=== PATIENT | male | born 1955 | race Two or more races ===

== ENCOUNTER 2019-04-08 12:20 | Outpatient (CLI) | payer OTHER | END 2019-04-08 12:32 | disposition home or self-care (01) | LOC: TOM 12:20 | DX: E13.69 Other specified diabetes mellitus with other specified complication (principal); I10 Essential (primary) hypertension ==

== ENCOUNTER 2019-06-19 11:18 | Inpatient (IN) | payer OTHER ==
[~2019-06-19] VITALS: Ht 193 cm; Wt 90.7 kg
[2019-06-19] MEDS ORDERED: GLIPIZIDE ER10 MG PO (12:27)
[2019-06-19] MEDS ORDERED: GLUMETZA1000 MG PO (12:27)
[2019-06-19] MEDS ORDERED: LOSARTAN POTAS100 MG PO (12:28)
[2019-06-19] MEDS ORDERED: GRALISE600 MG PO (12:29)
[2019-06-19] MEDS ORDERED: ELIQUIS2.5 MG PO (12:30)
[2019-06-19] MEDS ORDERED: ATORVASTATIN CA40 MG PO (12:30)
[2019-06-19] MEDS ORDERED: ATIVAN1 M1 PO (12:31)
--- NOTE | 2019-06-19 12:32 | NUR ---
PACIENTE ALERTA Y ORIENTADO CON [facility] EN PIE LT STEPHENS QUE TRATA LA ULCERA DR. CAMPOS Y DOCTOR INTERNISTA DR. CALIX. ES UN REFERIDO MEDICO DR. CAMPOS.
--- NOTE | 2019-06-19 12:52 | NUR ---
SE EDUCA A PTE SOBRE TX MEDICO MARKELL REFIERE ENTENDER. SE PITO MUESTRAS DE LAB UTILIZANDO MEDIDAS ASEPTICAS. SE COLOCA H/L A PTE EL CUAL SE ENCUENTRA PATENTE CRYSTAL DE EDEMA Y ENROJECIMIENTO. PTE SE CONTINUA MONITORIANDO POR CAMBIOS.
== END 2019-06-27 13:25 | disposition home or self-care (01) | DRG 256 ==
LOC: ER 11:18 → SURH 15:35
PROVIDERS: Specialist; ADMIT Internal Medicine Cardiovascular Disease
PROC: 0Y6Y0Z0 Detachment at Left 5th Toe, Complete, Open Approach (ICD-10-PCS; principal; 2019-06-22 14:00)
DX: E11.52 Type 2 diabetes mellitus with diabetic peripheral angiopathy with gangrene (principal); I96 Gangrene, not elsewhere classified; M86.172 Other acute osteomyelitis, left ankle and foot; L97.528 Non-pressure chronic ulcer of other part of left foot with other specified severity; E11.69 Type 2 diabetes mellitus with other specified complication; E11.42 Type 2 diabetes mellitus with diabetic polyneuropathy; E11.621 Type 2 diabetes mellitus with foot ulcer; Z95.0 Presence of cardiac pacemaker

== ENCOUNTER → 2022-10-23 08:41 | Outpatient (CLI) | payer OTHER ==
[~2022-10-23 08:41] MED LIST: ATIVAN1 M1 PO; ATORVASTATIN CA40 MG PO; ELIQUIS2.5 MG PO; GLIPIZIDE ER10 MG PO; GLUMETZA1000 MG PO; GRALISE600 MG PO; LOSARTAN POTAS100 MG PO
== END | disposition home or self-care (01) ==
LOC: LAB 08:41
DX: E11.22 Type 2 diabetes mellitus with diabetic chronic kidney disease (principal); R80.0 Isolated proteinuria; I12.9 Hypertensive chronic kidney disease with stage 1 through stage 4 chronic kidney disease, or unspecified chronic kidney disease; N18.32 Chronic kidney disease, stage 3b

== ENCOUNTER 2023-01-07 07:18 | Inpatient (IN) | payer OTHER ==
[~2023-01-07] VITALS: Ht 152.4 cm; Wt 97.5 kg
--- NOTE | 2023-01-07 07:46 | NUR ---
PTE CON REFERIDO DEL DR BETH GONZALEZ PTE CON [facility] EN EL [facility]
--- NOTE | 2023-01-07 09:07 | NUR ---
SE EDUCA PACIENTE SOBRE USO Y EFECTO DE MEDICAMENTO SE LE ADMINSTRA EL MISMO POR ORDEN MEDICA, SE CANALIZA BRAZO LINDA, SE LE REALIZAN MUESTRAS DE LAB Y SE ENVIAN DE FORMA INMEDIATA. SE KRISTINE PACIENTE CON NSS BAJANDO A 40 ML/HR. EN CÉSAR CON BARANDAS ELEVADAS.
--- NOTE | 2023-01-07 15:23 | NUR ---
SE RECIBE PACIENTE DEL TURNO ANTERIOR EL MISMO SE ENCUENTRA ALERTA Y ORIENTADO X3, SE LE ORIENTA A PACIENTE SOBRE CONTINUIDAD DE TRATAMIENTO Y VERBALIZA ENTENDER. SE OBSERVA PACIENTE CANALIZADO RECIBIENDO 0.9%NSS BAJANDO A 42ML/HR. PACIENTE CONSULTADO CON DR STRICKLAND.
[2023-01-08] MEDS ORDERED: BACLOFEN10 MG (08:23)
[2023-01-08] MEDS ORDERED: ZOLPIDEM TARTRA10 MG (08:23)
[2023-01-08] MEDS ORDERED: DOXAZOSIN MESYLA2 MG (08:23)
[2023-01-08] MEDS ORDERED: AMOXICILLIN500 M1 (08:23)
[2023-01-08] MEDS ORDERED: FARXIGA10 MG (08:23)
[2023-01-18] MEDS ORDERED: LOSARTAN POTAS100 MG PO (13:03)
[2023-01-18] MEDS ORDERED: CARdura 4MG TABLET PO (13:03)
[2023-01-18] MEDS ORDERED: AMOX1TAB5 PO (13:03)
[2023-01-18] MEDS ORDERED: INTESTINEX680 M2 PO (13:03)
== END 2023-01-18 19:53 | disposition home or self-care (01) | DRG 256 ==
LOC: ER 07:18 → MEDI 17:56
PROVIDERS: Specialist; ADMIT Internal Medicine; ATTEND Internal Medicine
PROC: B44HZZZ Ultrasonography of Bilateral Lower Extremity Arteries (ICD-10-PCS; 2023-01-07)
PROC: CP1Z1ZZ Planar Nuclear Medicine Imaging of Musculoskeletal System, All using Technetium 99m (Tc-99m) (ICD-10-PCS; 2023-01-09)
PROC: B020ZZZ Computerized Tomography (CT Scan) of Brain (ICD-10-PCS; 2023-01-10)
PROC: 30233N1 Transfusion of Nonautologous Red Blood Cells into Peripheral Vein, Percutaneous Approach (ICD-10-PCS; 2023-01-11)
PROC: 0Y6W0Z1 Detachment at Left 4th Toe, High, Open Approach (ICD-10-PCS; principal; 2023-01-14 07:00)
DX: I96 Gangrene, not elsewhere classified (principal); I69.354 Hemiplegia and hemiparesis following cerebral infarction affecting left non-dominant side; L97.528 Non-pressure chronic ulcer of other part of left foot with other specified severity; L97.428 Non-pressure chronic ulcer of left heel and midfoot with other specified severity; M86.8X6 Other osteomyelitis, lower leg; Z68.44 Body mass index [BMI] 60.0-69.9, adult; N17.8 Other acute kidney failure; E11.52 Type 2 diabetes mellitus with diabetic peripheral angiopathy with gangrene; E11.621 Type 2 diabetes mellitus with foot ulcer; E11.628 Type 2 diabetes mellitus with other skin complications; E11.65 Type 2 diabetes mellitus with hyperglycemia; E11.40 Type 2 diabetes mellitus with diabetic neuropathy, unspecified; E11.22 Type 2 diabetes mellitus with diabetic chronic kidney disease; D64.89 Other specified anemias; E86.0 Dehydration; N28.89 Other specified disorders of kidney and ureter; E83.42 Hypomagnesemia; M62.81 Muscle weakness (generalized); R20.0 Anesthesia of skin; M25.552 Pain in left hip; M25.551 Pain in right hip; E11.649 Type 2 diabetes mellitus with hypoglycemia without coma; I87.2 Venous insufficiency (chronic) (peripheral); I12.9 Hypertensive chronic kidney disease with stage 1 through stage 4 chronic kidney disease, or unspecified chronic kidney disease; N18.30 Chronic kidney disease, stage 3 unspecified; E66.01 Morbid (severe) obesity due to excess calories; Z89.422 Acquired absence of other left toe(s); Z79.84 Long term (current) use of oral hypoglycemic drugs